=== PATIENT | male | born 1960 | race Caucasian/White ===

== ENCOUNTER 2018-09-06 10:18 | Inpatient (IN) | payer MEDICAID ==
[2018-09-06] MEDS ORDERED: NS 1,000 ML IV ONE (10:21)
[2018-09-06] MEDS ORDERED: diphenhydrAMINE 25 MG CAP PO ONE ×2 (10:21→10:49)
[2018-09-06] MEDS ORDERED: ASPIRIN EC 325 MG TAB PO ONE ×2 (10:21→10:49)
[2018-09-06] MEDS ORDERED: FAMOTIDINE 20 MG TAB PO ONE (10:21)
[2018-09-06] MEDS ORDERED: DIAZEPAM 5 MG TAB PO ONE (10:21)
[2018-09-06] MEDS ORDERED: DIAZEPAM 5 MG TAB ONE (10:50)
[2018-09-06 11:07] LABS: PLATELET COUNT 138 10^3/uL (150-400)
[2018-09-06 11:11] LABS: INR 0.92 (0.83-1.16)
--- NOTE | 2018-09-06 11:34 | PDPROPOC ---
Sedation Plan of Care Sedation Plan of Care: mental status noted, patient educated of risks, benefits , alternatives, patient can tolerate sedation ASA Classification: ASA 2 Planned drugs: fentanyl, midazolam Mallampati Score: Class 2 Mallampati Reference Image: Patient passed 3-3-2 rule?: Yes
--- NOTE | 2018-09-06 11:34 | PDHPUP ---
History & Physical Update H&P update statement: This history and physical update is based on an assessment of the patient which was completed after admission or registration (within 24 hours), but prior to the surgery/procedure. H&P update: H&P reviewed & patient examined, no change in patient's condition since H&P completed
[2018-09-06] MEDS ORDERED: CLOPIDOGREL BISULFATE 75 MG TAB ONE (11:43)
[2018-09-06] MEDS ORDERED: CLOPIDOGREL BISULFATE 75 MG TAB PO ONE (11:45)
[2018-09-06] MEDS ORDERED: LIDOCAINE 1% 300 MG/30 ML SDV ONE (11:49)
[2018-09-06] MEDS ORDERED: fentaNYL 100 MCG/2 ML INJ ONE (11:49)
[2018-09-06] MEDS ORDERED: MIDAZOLAM 2 MG/2 ML VIAL ONE (11:50)
[2018-09-06] MEDS ORDERED: IOPAMIDOL (ISOVUE-370) 150 ML BTL IV ONE (11:50)
[2018-09-06] MEDS ORDERED: NITROGLYCERIN 1,500 MCG/15 ML VIAL MISC ONE (12:23)
[2018-09-06] MEDS ORDERED: NITROGLYCERIN 0.4 MG BTL SL PRN (13:01)
[2018-09-06] MEDS ORDERED: ONDANSETRON 4 MG/2 ML VIAL IVP PRN (13:01)
[2018-09-06] MEDS ORDERED: OXYCODONE/APAP 5/325 TAB PO PRN (13:01)
[2018-09-06] MEDS ORDERED: HYDROCODONE/APAP 5/325 TAB PO PRN (13:01)
[2018-09-06] MEDS ORDERED: ATROPINE SULFATE 1 MG/10 ML SYR IVP PRN (13:01)
--- NOTE | 2018-09-06 14:03 | CPIP ---
[f rep st] INVASIVE CARDIAC PROCEDURE DATE OF PROCEDURE: 09/06/2018 INDICATION FOR PROCEDURE: Chest pain, positive stress test, a history of heart failure. PROCEDURE: 1. Nonselective right groin sheathogram. 2. 7-[place] sheath in the right common femoral vein. 3. Bilateral selective coronary angiography. 4. Left heart catheterization. 5. Left ventriculogram. 6. Right heart catheterization using Me[place]et[place]-Cherie catheter. HISTORY: Briefly this is a 57-year-old male with history of known ischemic cardiomyopathy with histo ry of stent placement in LAD. Patient has been indicating he has been having worsening discomfort in his chest with minimal exertion. Given these findings, patient consented for right and left heart c atheterization. DESCRIPTION OF PROCEDURE: After informed consent, the patient was brought to [facility] where the right arias in was prepped and draped in sterile fashion. Using lidocaine, a short 6-[place] sheath in the right c ommon femoral artery verified angiographically, a 7-[place] sheath in the right common femoral vein. Me[place]et[place]-Cherie catheter was advanced. Wedge pressure mean of 5, A-wave of 6, V-wave of 9. PA pressure sy stolic 31, diastolic 12, mean of 19. RV pressure systolic 30, diastolic 2, end of 9. RA pressure me an of 5, A-wave of 8, V-wave of 6. Cardiac output was 9.2 with a Ann index of 4.1. AO sat was 93%. PA sat was 81%. At this time, the [place]-Cherie catheter was then removed. A JL4 catheter was advanced to the left coronary artery. Images of the left coronary artery revealed normal short left main. The left circumflex had what appeared to be a tubular 40% to 50% disease in the proximal aspect. There was a takeoff of a small marginal 1 artery, and just distal to this, the re was what appeared to be a tight lesion of approximately 70% to 80%, followed by another marginal a rtery, followed by a third marginal artery, which was healthy and free of disease. We decided to adm inister 200 mcg of nitroglycerin as this vessel's tubular stenosis appeared to be quite long and we w anted to make sure this was not a spasm induced issue. 200 mcg of nitroglycerin was administered IC. Images were retaken in the same caudal views. This once again re-demonstrated the lesion between t he 1st marginal and 2nd marginal artery still ranged up to 80%. Of note as well, we have seen at thi s position, there was a stent in the mid LAD, which was patent; however, just proximal to the stent a t the takeoff of a very large septal adjunct trainer, which almost looked like a bifurcating LAD, there ap peared to be a tubular type stenosis of at least 70% to 80%. After these images were obtained, the J L4 catheter was removed. A JR4 catheter was advanced to the right coronary artery. Images of the right coronary artery reveal ed normal ostial RCA, 20% to 30% proximal RCA. The distal RCA going into the RPLS, the RPLS had 70% to 80% hazy disease. The RPLS less appeared to be the larger of the 2 vessels and was widely patent distally. After these images had been obtained, the JR4 catheter was removed. A pigtail catheter was advanced to the left ventricle. EDP is 15 mmHg. Left ventriculogram obtained in the ALONSO projection showed an EF of 50% with low-normal ejection fraction. There was no pullback gradient between the LV and the aorta. The pigtail catheter was removed over 0.035 wire. Right groi n was closed with 6-[place] Angio-Seal and manual pressure. Patient tolerated the procedure well with no complications. IMPRESSION: 1. Triple-vessel coronary artery disease. 2. Normal cardiac output. 3. Normal pulmonic pressures. PLAN: The patient will be seen by Dr. Goodman from CT surgery. Patient is willing to proceed with byp ass surgery if needed. /[id number]/MODL
[2018-09-06] MEDS ORDERED: ACETAMINOPHEN 325 MG TAB PO PRN (14:47)
[2018-09-06] MEDS ORDERED: ONDANSETRON DISINTEGRATING 4 MG TAB PO PRN (14:47)
[2018-09-06] MEDS ORDERED: ALPRAZolam 0.25 MG TAB PO PRN (15:37)
[2018-09-06] MEDS ORDERED: ALBUTEROL 60 PUFFS/8 GM MDI IH PRN (15:37)
--- NOTE | 2018-09-06 16:43 | PDMN ---
Medical Necessity Medical necessity: [facility] Cardiovascular Surgery or Procedure: 57 yo in for scheduled R&L heart cath for CP, +stress test and hx of heart fx. Dx post cath with triple vessel CAD. Pt amenable to CABG - Cardiothoracic surg consulting with pt to discuss bypass. Admit IP status.
--- NOTE | 2018-09-06 16:48 | GCON ---
[f rep st] CONSULTATION DATE OF CONSULTATION: 09/06/2018 The patient is seen at the request of Dr. Crabtree with the patient's permission. IMPRESSION: 1. Crescendo angina with 3-vessel disease and normal LV function, status post remote stenting. 2. Congestive heart failure. MEDICATIONS: As documented. REVIEW OF SYSTEMS: All 10 systems were interrogated and were negative except for chief complaint. PHYSICAL EXAMINATION: GENERAL: This is a well-developed, middle-aged gentleman in no apparent distr ess. HEART: Rate is regular without murmur, S3 or S4. LUNGS: Clear. EXTREMITIES: Pedal pulses a re 2+ and symmetrical. ABDOMEN: Bowel sounds are active. RECTAL/GENITAL: Exam deferred. MEDICATIONS: Aspirin, Ativan, lisinopril, omeprazole and Toprol-XL. SOCIAL HISTORY: He has never smoked. He drinks gxsvpbum-tm-kudzpt alcohol weekly. ALLERGIES: Denied. PHYSICAL EXAMINATION: VITAL SIGNS: 118/82, pulse 74, respirations 14, nonlabored. HEENT: Normocep halic. PERRLA. EOMI. DATA REVIEWED: Cath was reviewed with Dr. Crabtree. /[id number]/MODL
--- NOTE | 2018-09-06 17:30 | CPEKG ---
Test Reason : OPEN Blood Pressure : / mmHG Vent. Rate : 068 BPM Atrial Rate : 070 BPM P-R Int : 182 ms QRS Dur : 083 ms QT Int : 419 ms P-R-T Axes : 025 012 013 degrees QTc Int : 446 ms Sinus rhythm Confirmed by Brody Walton ([id number]) on 09/06/2018 5:30:03 PM Referred By: Cipriano Andrade Confirmed By:Brody Walton
[2018-09-06] MEDS ORDERED: CYCLOBENZAPRINE 10 MG TAB PO SCH (21:00)
[2018-09-07 07:30] VITALS: BP 123/77
--- NOTE | 2018-09-07 07:31 | PDCARPN ---
Cardiology Progress Note Chief Complaint: CP Assessment/Plan: Assessment: CP severe CAD Plan: 09/07/18 07:30 Plan for CABG per CTS will d/c home today if OK with CTS and plan for surgery per CTS Subjective: stable Reviewed/Discussed With: multidisciplinary team Time Spent with Patient: greater than 25 minutes Time Spent with Patient: Greater than 25 minutes spent on this patients care, greater than 50% of time spent counseling, educating, and coordinating care regarding the above mentioned plan. Objective: Vital Signs (8 Hrs) Temp Pulse Resp BP Pulse Ox 09/07/18 07:29 36.9 C 73 20 123/77 H 96 09/07/18 04:00 36.7 C 81 16 103/60 94 09/07/18 02:56 80 20 95 Intake/Output (24 Hrs) 09/06/18 09/07/18 09/08/18 05:59 05:59 05:59 Intake Total 1999 Balance 1999 Intake: Oral (ml) 1600 IV Intake (ml) 400 Other: Weight 96.4 kg 94.438 kg Result Diagrams: 09/06/18 10:55 09/07/18 03:21 - Physical Exam Constitutional: healthy appearing Eyes: PERRL Ears, Nose, Mouth, Throat: moist mucous membranes Cardiovascular: regular rate and rhythm Peripheral Pulses: 1+: femoral (R), femoral (L) Respiratory: clear to auscultate bilat Gastrointestinal: normoactive bowel sounds Genitourinary: no suprapubic tenderness Skin: no rashes Musculoskeletal: no muscular tenderness Neurologic: AAOx3 Psychiatric: cooperative ICD10 Worksheet Patient Problems: Problems Problem Status Onset CAD (coronary artery disease) Acute - ICD10 Problem Qualifiers (1) CAD (coronary artery disease) Qualifiers: Coronary Disease-Associated Artery/Lesion type: [place] artery [place] vs. transplanted heart: [place] heart Associated angina: with stable angina Qualified Code(s): I25.118 - Atherosclerotic heart disease of [place] coronary artery with other forms of angina pectoris
--- NOTE | 2018-09-07 07:50 | GDS ---
[f rep st] DISCHARGE SUMMARY DISCHARGE DIAGNOSIS: Coronary artery disease. Briefly, this is a 57-year-old male with history of coronary artery disease, ischemic cardiomyopathy, who underwent elective cardiac catheterization on 09/06/2018. The patient was found to have triple- vessel coronary artery disease. The patient was seen by Dr. Goodman from CT surgery. The patient will discuss with Dr. Goodman as well as the CT surgical staff about timing of his CABG. The patient is cu rrently resting quietly with no active discomfort. Blood pressure, heart rate are currently stable. He will be discharged home with his home medications and he will follow up with Dr. Goodman at timing of surgery. Currently, the patient is stable and will follow through with surgical plans as schedule d. /[id number]/MODL
[2018-09-07] MEDS ORDERED: METOPROLOL SUCCINATE XR 50 MG TAB PO SCH (09:00)
[2018-09-07] MEDS ORDERED: PANTOPRAZOLE SODIUM 40 MG TAB PO SCH (09:00)
[2018-09-07] MEDS ORDERED: Herbals/Supplements -Info Only PO SCH (09:00)
[2018-09-07] MEDS ORDERED: LISINOPRIL 20 MG TAB PO SCH (09:00)
[2018-09-07] MEDS ORDERED: ALLOPURINOL 300 MG TAB PO SCH (09:00)
[2018-09-07] MEDS ORDERED: ASPIRIN 81 MG CHEWABLE TAB PO SCH (09:00)
== END 2018-09-07 10:45 | disposition home or self-care (01) | DRG 191 ==
LOC: FCATH 10:18 → F2W 14:52 → OBSVTOIN 14:52 → F2W 16:13
PROVIDERS: ADMIT Internal Medicine Cardiovascular Disease; ATTEND Internal Medicine Interventional Cardiology
PROC: 4A023N8 Measurement of Cardiac Sampling and Pressure, Bilateral, Percutaneous Approach (ICD-10-PCS; principal; 2018-09-06)
PROC: B2151ZZ Fluoroscopy of Left Heart using Low Osmolar Contrast (ICD-10-PCS; principal; 2018-09-06)
PROC: B2111ZZ Fluoroscopy of Multiple Coronary Arteries using Low Osmolar Contrast (ICD-10-PCS; principal; 2018-09-06)
DX: I25.110 Atherosclerotic heart disease of native coronary artery with unstable angina pectoris (principal); I11.0 Hypertensive heart disease with heart failure; I50.42 Chronic combined systolic (congestive) and diastolic (congestive) heart failure; I25.5 Ischemic cardiomyopathy; M10.9 Gout, unspecified; Z85.6 Personal history of leukemia
CPT/HCPCS: C1760; J1644; J2250; J3010; Q9967

== ENCOUNTER 2018-09-13 07:40 | Inpatient (IN) | payer MEDICAID ==
[~2018-09-13 07:40] MED LIST: ADENOSINE 6 MG/2 ML VIAL ONE; ALBUMIN 5% 250 ML BOTTLE IV ONE; AMINOCAPROIC ACID 5 GM/20 ML VIAL IV ONE; AMINOCAPROIC ACID 5 GM/20 ML VIAL ONE; AMIODARONE HCL 150 MG/3 ML VIAL ONE; CALCIUM CHLORIDE 1 GM/10 ML INJ ONE; CITRATE DEXTROSE SOLN 500 ML BAG MISC ONE; CITRATE DEXTROSE SOLN 500 ML BAG ONE; DOPamine/DEXTROSE 400 MG/250 ML BAG IV ONE; HEPARIN 10,000 UNIT/10 ML MDV (1,000 UNIT/ML) ONE; LIDOCAINE 2% 100 MG/5 ML SYR ONE; LR 1,000 ML IV ONE; MAGNESIUM SULFATE 1 GM/2 ML VIAL ONE; MILRINONE/DEXTROSE/100 ML BAG IV ONE; MINERAL OIL 10 ML VIAL ONE; MUPIROCIN 2% 22 GM OINT NS ONE; NA BICARBONATE 50 MEQ/50 ML VIAL ONE; NITROGLYCERIN/D5W 50 MG/250 ML BOTTLE IV ONE; PAPAVERINE HCL 60 MG/2 ML SDV ONE; PROTAMINE SULFATE 50 MG/5 ML VIAL IVP ONE; SODIUM BICARBONATE 50 MEQ/50 ML SYR ONE; VERAPAMIL 5 MG/2 ML VIAL ONE; ceFAZolin 1 GM VIAL ONE; ceFAZolin 2 GM/DEXTROSE 100 ML IV ONE; methylPREDNISolone SOD SUCC 1 GM/8 ML VIAL ONE; niCARdipine/NACL 200 ML IV ONE; niCARdipine/NACL/200 ML BAG IV ONE
[2018-09-13] MEDS ORDERED: NOREPINEPHRINE BITARTRATE 16 MG in NS 250 ML IV ONE (08:00)
[2018-09-13] MEDS ORDERED: PHENYLEPHRINE HCL 50 MG in NS 250 ML IV ONE (08:00)
[2018-09-13] MEDS ORDERED: VERAPAMIL 5 MG, NITROGLYCERIN 2.5 MG, HEPARIN 500 UNIT, SODIUM BICARBONATE 0.2 MEQ in L... MISC ONE (08:00)
[2018-09-13] MEDS ORDERED: MANNITOL 25% 12.5 GM/50 ML VIAL IVP ONE (08:00)
[2018-09-13] MEDS ORDERED: CARDIOPLEGIC SOLUTION 1,052.8 ML PF ONE (08:00)
[2018-09-13] MEDS ORDERED: INSULIN REGULAR HUMAN 100 UNIT in NS 100 ML IV ONE (08:00)
[2018-09-13] MEDS ORDERED: MIDAZOLAM 2 MG/2 ML VIAL IVP ONE (09:14)
--- NOTE | 2018-09-13 09:15 | PDANEPAE ---
ANE History of Present Illness here for 3 V CABG ANE Past Medical History - Cardiovascular History Hx Hypertension: Yes Hx Arrhythmias: No Hx Chest Pain: No Hx Coronary Artery / Peripheral Vascular Disease: Yes Hx CHF / Valvular Disease: Yes Hx Palpitations: No Cardiovascular History Comment: htn. CAD with stent placed 1999 in [place]. CHF. followed by [facility]. heart cath 09/06/18 - Pulmonary History Hx COPD: Yes Hx Asthma/Reactive Airway Disease: No Hx Recent Upper Respiratory Infection: No Hx Oxygen in Use at Home: No Hx Sleep Apnea: Yes Sleep Apnea Screening Result - Last Documented: Positive Pulmonary History Comment: benjamin positive. SOB - Neurologic History Hx Cerebrovascular Accident: No Hx Seizures: No Hx Dementia: No - Endocrine History Hx Diabetes: No - Renal History Hx Renal Disorders: No - Liver History Hx Hepatic Disorders: No - Neurological & Psychiatric Hx Hx Neurological and Psychiatric Disorders: Yes Neurological / Psychiatric History Comment: anxiety - Cancer History Cancer History Comment: CLL currently in remission x4 yrs did do chemo and radiation - Congenital Disorder History Hx Congenital Disorders: No - GI History Hx Gastrointestinal Disorders: Yes Gastrointestinal History Comment: GERD - Other Health History Other Health History: gout. recent dental infection treated with abx and teeth removed - Chronic Pain History Chronic Pain: No - Surgical History Prior Surgeries: heart cath 09/06/18. cardiac stent placed in 1999 in [place]. right shoulder replacement ANE Review of Systems Review of systems is: negative Review of Systems: - Exercise capacity Exercise capacity: <4 METS METS (RN): 3 METS ANE Patient History - Allergies Allergies/Adverse Reactions: No Known Allergies Allergy (Verified 09/09/18 10:51) - Home Medications Home medications: home medication list seen and reviewed Home Medications: ALPRAZolam [Xanax 0.5 MG (*)] 0.5 mg PO DAILY PRN 10/22/15 [Last Taken 07/23/18] Albuterol Hfa Anes Only [Proair Hfa Icu (*)] 1 - 2 puffs IH Q4 PRN 10/22/15 [ Last Taken 08/16/18] Allopurinol [Allopurinol 300 MG (RX)] 300 mg PO DAILY 10/22/15 [Last Taken 09/12] Lisinopril [Zestril 20 mg (*)] 20 mg PO DAILY 10/22/15 [Last Taken 09/12/18] Cyclobenzaprine [Flexeril 10 MG (*)] 10 mg PO HS 09/06/18 [Last Taken 09/12/18] Herbals/Supplements -Info Only 1 ea PO DAILY 09/06/18 [Last Taken 09/12/18] Metoprolol Succinate Xr [Toprol Xl 50 mg (*)] 50 mg PO DAILY 09/06/18 [Last Taken 09/12/18] Pantoprazole Sodium [Protonix 40mg (*)] 40 mg PO DAILY 09/06/18 [Last Taken ] - NPO status NPO Status: no food or drink >8 hours NPO Since - Liquids (Date): 09/12/18 NPO Since - Solids (Date): 09/12/18 - Smoking Hx Smoking Status: Never smoked ANE Labs/Vital Signs - Vital Signs Vital Signs: reviewed preoperatively; see RN documention for details Blood Pressure: 129/79 Heart Rate: 72 Respiratory Rate: 14 O2 Sat (%): 97 Height: 187.9 cm Weight: 94.438 kg ANE Physical Exam - Airway Neck exam: FROM Mallampati Score: Class 1 - Pulmonary Pulmonary: no respiratory distress - Cardiovascular Cardiovascular: regular rate and rhythym - ASA Status ASA Status: III ANE Anesthesia Plan Anesthesia Plan: general endotracheal anesthesia Lines/Monitors: arterial line, central line
[2018-09-13] MEDS ORDERED: fentaNYL 250 MCG/5 ML INJ ONE ×2 (09:20)
[2018-09-13] MEDS ORDERED: PROPOFOL/EMULSION 500 MG/50 ML BOTTLE IV ONE (09:21)
[2018-09-13] MEDS ORDERED: PHENYLEPHRINE HCL 100 MCG/ML SYR ONE (09:26)
[2018-09-13] MEDS ORDERED: KETAMINE 200 MG/20 ML VIAL ONE (10:10)
[2018-09-13] MEDS ORDERED: DEXAMETHASONE 4 MG/ML VIAL ONE (10:11)
[2018-09-13] MEDS ORDERED: MIDAZOLAM 2 MG/2 ML VIAL ONE (11:18)
[2018-09-13] MEDS ORDERED: ROCURONIUM 50 MG/5 ML VIAL ONE (11:19)
[2018-09-13] MEDS ORDERED: ceFAZolin 1 GM VIAL ONE ×2 (11:42)
[2018-09-13] MEDS ORDERED: DEXMEDETOMIDINE HCL 400 MCG in NS 100 ML IV SCH (13:00)
[2018-09-13] MEDS ORDERED: SUGAMMADEX SODIUM 200 MG/2 ML VIAL IVP ONE (13:13)
[2018-09-13] MEDS ORDERED: LACTULOSE 20 GM/30 ML UDCUP PO PRN (13:31)
[2018-09-13] MEDS ORDERED: ACETAMINOPHEN 650 MG SUPP PR PRN (13:31)
[2018-09-13] MEDS ORDERED: POTASSIUM Cl (KCl) 50 ML IV PRN (13:31)
[2018-09-13] MEDS ORDERED: ONDANSETRON DISINTEGRATING 4 MG TAB PO PRN (13:31)
[2018-09-13] MEDS ORDERED: POLYETHYLENE GLYCOL 3350 17 GM PKT PO PRN (13:31)
[2018-09-13] MEDS ORDERED: MEPERIDINE 25 MG/0.5 ML AMP IVP PRN (13:31)
[2018-09-13] MEDS ORDERED: SODIUM CL NASAL 45 ML BTL EACHNARE PRN (13:31)
[2018-09-13] MEDS ORDERED: BISACODYL 10 MG SUPP PR PRN (13:31)
[2018-09-13] MEDS ORDERED: D50W 25 GM/50 ML SYR IVP PRN (13:31)
[2018-09-13] MEDS ORDERED: PANTOPRAZOLE SODIUM 40 MG VIAL IVP ONE (13:31)
[2018-09-13] MEDS ORDERED: CEPACOL LOZENGE PO PRN (13:31)
[2018-09-13] MEDS ORDERED: MAGNESIUM HYDROXIDE 30 ML UDCUP PO PRN (13:31)
--- NOTE | 2018-09-13 13:43 | PDMN ---
Medical Necessity Medical necessity: [facility] IP only surgery; cpt 12041 CABG
[2018-09-13] MEDS ORDERED: NS 1,000 ML IV SCH (13:45)
[2018-09-13] MEDS ORDERED: INSULIN REGULAR HUMAN 100 UNIT in NS 100 ML IV SCH (14:00)
[2018-09-13] MEDS: fentaNYL 100 MCG/2 ML INJ IVP PRN ×3 (14:00→18:55)
[2018-09-13] MEDS ORDERED: niCARdipine/NACL 200 ML IV SCH (14:00)
[2018-09-13] MEDS ORDERED: NA BICARBONATE 50 MEQ/50 ML VIAL ONE (14:22)
[2018-09-13] MEDS ORDERED: NA BICARBONATE 50 MEQ/50 ML VIAL IV ONE ×2 (14:30→16:00)
--- NOTE | 2018-09-13 14:49 | GCON ---
[f rep st] CONSULTATION DRAGLINE ENGINEER CONSULTATION HISTORY OF PRESENT ILLNESS: Patient examined postoperatively after receiving coronary bypass graft. The patient is a 57-year-old white male with an extensive past medical history, including gout, cassandra roesophageal reflux disease, chronic lymphoid leukemia, congestive heart failure, anxiety. He is, ag ain, examined postoperatively. Currently, he is sedated and on mechanical ventilation. All history is gleaned from the medical record. REVIEW OF SYSTEMS: Ten-point review of systems was attempted, but unable to be performed, secondary to sedation and mechanical ventilation. PAST MEDICAL HISTORY: Significant for anxiety, coronary artery disease, congestive heart failure, CL L, gastroesophageal reflux disease, and gout. PAST SURGICAL HISTORY: Arthroplasty of shoulder and coronary artery stent. ALLERGIES: No known medications. SOCIAL HISTORY: Fgfwlyuz-ya-omayjf alcohol use. No history of tobacco use. PHYSICAL EXAM: VITAL SIGNS: Blood pressure 129/79, pulse 72, respirations 14. He is afebrile. Oxy gen saturation 97% on mechanical ventilation. GENERAL: He is a well-developed 57-year-old white mal e who is sedated and on mechanical ventilation. HEENT: Eyes: FERMÍN, EOMI. Throat: Endotracheal tu be is in good position. NECK: Supple. No cervical adenopathy. HEART: Regular rate and rhythm wit h a 2/6 systolic murmur at left sternal border without radiation. LUNGS: Diminished breath sounds w ith a mild prolongation expiratory phase, but there is no wheeze. ABDOMEN: Soft, nontender. Bowel sounds are present in all 4 quadrants . EXTREMITIES: No clubbing, cyanosis, or edema. LABORATORY DATA: Hemoglobin 11, hematocrit 34. Sodium 140, potassium 4.4, chloride 110, CO2 21, BUN is 6, creatinine 0.9, glucose is 181. Arterial blood gas: pH 7.29, pCO2 of 41, pO2 of 278, bicarb 20, oxygen saturation 100%. IMPRESSION: 1. Coronary artery disease, status post coronary bypass graft. 2. Hypertension. 3. Chronic lymphocytic leukemia. 4. History of excessive alcohol use. 5. Congestive heart failure. 6. Gastroesophageal reflux disease. 7. Possible obstructive sleep apnea. RECOMMENDATIONS: 1. Wean patient from mechanical ventilation as tolerated. 2. DVT and PE prophylaxis, holding anticoagulation for now. 3. Stress ulcer prophylaxis. 4. Aggressive blood sugar control. 5. Early ambulation. 6. PT and OT. /[id number]/MODL
--- NOTE | 2018-09-13 14:54 | GOP ---
[f rep st] OPERATIVE REPORT DATE OF OPERATION: 09/13/2018 SURGEON: Cipriano Goodman DO LANDING SCALER: 1. Torrey Mcconnell PA-C. 2. Marisa. ANESTHESIOLOGIST: [place]. PREOPERATIVE DIAGNOSIS: Arteriosclerotic heart disease. POSTOPERATIVE DIAGNOSIS: Arteriosclerotic heart disease. PROCEDURE PERFORMED: 1. Coronary artery bypass grafting x4 with left internal mammary artery to the left anterior descend ing, saphenous vein graft to the first obtuse marginal, third obtuse marginal and posterolateral bran ch of the right. 2. Endoscopic vein of both thighs by NELLY Yepez, who first-assisted throughout the procedure. 3. Suture ligation of the left atrial appendage. FINDINGS: DESCRIPTION OF PROCEDURE: The patient was consented for surgery, brought to the operating room, intu bated and monitoring lines were placed. He was prepped and draped in sterile classical manner. Ster notomy was performed. Mammary was harvested, as was the vein endoscopically from both thighs. It wa s good quality vein, as was the mammary. He was heparinized, cannulated. Bypass was begun. A cardi oplegic arrest was obtained with antegrade cardioplegia, topical hypothermia and systemic cooling. A ll distal and proximal was performed with a cross-clamp on. The posterolateral branch was a 2.4 mm v essel. The 1st and 3rd circumflex branches were 2.2 and the LAD was 2.6. The Conduits were excellen t. The aorta was without thickening or calcification. We then over-sewed the left atrial appendage was 3 Endoloops. Cross-clamp was then removed with suction on the ascending aortic vent. Spontaneou s cardiac activity was noted to resume. The patient was then weaned from bypass. Heparin was revers ed with protamine. Cannula was removed and oversewn. One left pleural and 1 mediastinal drain were placed. Thymic fat and pericardium were closed. Chest was closed in standard fashion. The patient was returned to ICU in stable condition. /[id number]/MODL
[2018-09-13] MEDS: ALBUMIN 5% 250 ML IV PRN ×2 (15:13→15:29)
--- NOTE | 2018-09-13 15:29 | ASMTCMCOM ---
CM Note CM Note Notes: Pt is a 57 yo M presents after undergoing coronary bypass graft. Pt came to ICU intubated. Pt has past history of gout, reflux, lymphoid leukemia, congestive heart failure, and anxiety. At this time PT/OT are ordered. Transitional Care is ordered. CM to follow. Plan: TBD Date Signed: 09/13/2018 03:28 PM Electronically Signed By:MARIBELL Sheehan
[2018-09-13] MEDS: ONDANSETRON 4 MG/2 ML VIAL IVP PRN (16:15)
[2018-09-13] MEDS ORDERED: DOPamine/DEXTROSE 400 MG/250 ML BAG IV ONE (16:16)
--- NOTE | 2018-09-13 16:28 | CPEKG ---
Test Reason : OPEN Blood Pressure : / mmHG Vent. Rate : 081 BPM Atrial Rate : 082 BPM P-R Int : 227 ms QRS Dur : 086 ms QT Int : 410 ms P-R-T Axes : 000 056 046 degrees QTc Int : 476 ms Sinus rhythm Prolonged [place] interval Anteroseptal infarct, age indeterminate Compared with 09/06/2018 first degree AV block now present. Change in R wave progression Confirmed by Libia Oliveira ([id number]) on 09/13/2018 4:27:40 PM Referred By: Cipriano Goodman Confirmed By:Libia Oliveira
[2018-09-13] MEDS ORDERED: DEXTROSE IV SCH (16:30)
[2018-09-13] MEDS ORDERED: DOPAMINE IV SCH (16:30)
[2018-09-13] MEDS ORDERED: ALBUMIN 5% 500 ML BOTTLE IV ONE ×2 (16:32→23:19)
[2018-09-13] MEDS ORDERED: ALBUMIN 5% 250 ML IV ONE (17:00)
[2018-09-13] MEDS: ceFAZolin 2 GM/DEXTROSE 100 ML IV SCH (17:03)
--- NOTE | 2018-09-13 17:18 | POSTANESTH ---
Post Anesthetic Evaluation Cardiovascular Status: Normal, Stable Respiratory Status: Normal, Stable Level of Consciousness/Mental Status: Moderately Sleepy Pain Control: Adequate, Prn Tx Ordered Nausea/Vomiting Control: Adequate, Prn Tx Ordered Complications Possibly Related to Anesthesia: None Noted
[2018-09-13] MEDS: HYDROCODONE/APAP 5/325 TAB PO PRN ×2 (19:39→23:22)
[2018-09-13] MEDS: FAMOTIDINE 20 MG/NACL 50 ML IV SCH (20:02)
[2018-09-13] MEDS: SENNOSIDES/DOCUSATE SODIUM TAB PO SCH (20:02)
[2018-09-13] MEDS: CHLORHEXIDINE GLUCONATE 15 ML UDL PO SCH (20:05)
[2018-09-13] MEDS: MUPIROCIN 2% 22 GM OINT NS SCH (20:20)
[2018-09-13] MEDS ORDERED: ALBUMIN 5% 250 ML BOTTLE IV ONE (21:09)
[2018-09-13] MEDS ORDERED: ALBUMIN 5% 500 ML IV ONE (23:30)
[2018-09-14] MEDS: fentaNYL 100 MCG/2 ML INJ IVP PRN ×2 (01:12→06:13)
[2018-09-14] MEDS: ceFAZolin 2 GM/DEXTROSE 100 ML IV SCH ×3 (01:15→17:13)
[2018-09-14] MEDS: HYDROCODONE/APAP 5/325 TAB PO PRN ×2 (03:51→08:00)
[2018-09-14 04:05] LABS: PLATELET COUNT 86 10^3/uL (150-400)
[2018-09-14] MEDS: HEPARIN 5,000 UNIT/0.5 ML INJ SC SCH ×3 (04:29→23:16)
[2018-09-14] MEDS: CHLORHEXIDINE GLUCONATE 15 ML UDL PO SCH (08:01)
[2018-09-14] MEDS: ASPIRIN 81 MG CHEWABLE TAB PO SCH (08:01)
[2018-09-14] MEDS: MUPIROCIN 2% 22 GM OINT NS SCH ×2 (08:01→21:00)
[2018-09-14] MEDS: SENNOSIDES/DOCUSATE SODIUM TAB PO SCH ×2 (08:01→21:12)
[2018-09-14] MEDS: PANTOPRAZOLE SODIUM 40 MG TAB PO SCH (08:01)
[2018-09-14] MEDS: FAMOTIDINE 20 MG/NACL 50 ML IV SCH (08:04)
--- NOTE | 2018-09-14 08:31 | SOAPPROG ---
SOAP Progress Note Assessment/Plan: POD #1: CABGx4 (QUIROGA-LAD, SVG-OM1, SVG-OM3, SVG-RPL), suture ligation ESTEFANI, EVH BL thighs CAD s/p CABGx4 - CTs to bulb, AL/FC out - BB/ASA/sratin for secondary prevention when appropriate Acute post-op blood loss anemia - No transfusions needed DVT prophylaxis - SCDs/heparin SQ Disposition - PCU Subjective: pt c/o incisional pain Objective: Vital Signs Temp Pulse Resp BP Pulse Ox 37.4 C 102 H 24 H 141/69 H 96 09/14/18 06:00 09/14/18 07:00 09/14/18 07:00 09/14/18 07:00 09/14/18 07:00 Laboratory Results 09/14/18 03:56 09/14/18 03:56 09/13/18 09/14/18 09/15/18 05:59 05:59 05:59 Intake Total 3539 Output Total 2675 Balance 864 Physical Exam - Physical Exam General Appearance: WD/WN, alert, no apparent distress EENT: No scleral icterus (R), No scleral icterus (L) Neck: normal inspection Respiratory: No respiratory distress Cardiac/Chest: regular rate, rhythm Abdomen: non-tender, soft, No distended Skin: normal color, warm/dry Extremities: No pedal edema Neuro/Psych: no motor/sensory deficits, alert, normal mood/affect, oriented x 3 ICD10 Worksheet Patient Problems: Problems Problem Status Onset Acute blood loss as cause of postoperative anemia Acute S/P CABG x 4 Acute Status post ligation of left atrial appendage Acute CAD (coronary artery disease) Acute
[2018-09-14] MEDS ORDERED: ALBUTEROL HFA ANES ONLY 200 PUFFS/8.5 GM MDI IH PRN (08:35)
[2018-09-14] MEDS ORDERED: ALBUTEROL 60 PUFFS/8 GM MDI IH PRN (08:42)
[2018-09-14] MEDS ORDERED: OXYCODONE/APAP 5/325 TAB PO PRN (09:24)
[2018-09-14] MEDS: ALLOPURINOL 300 MG TAB PO SCH (10:31)
[2018-09-14] MEDS: traMADol 50 MG TAB PO PRN ×3 (10:34→18:53)
[2018-09-14] MEDS: oxyCODONE IR 5 MG TAB PO PRN ×2 (16:10→20:17)
[2018-09-14] MEDS ORDERED: AMIODARONE LOAD DOSE(ORDER 1/3) PREMIX IV ONE (21:00)
[2018-09-14] MEDS ORDERED: AMIODARONE 6HR INFSN (ORDER 2/3) PREMIX IV ONE (21:00)
[2018-09-14] MEDS: METOPROLOL TARTRATE 25 MG TAB PO SCH (21:12)
[2018-09-14] MEDS: CYCLOBENZAPRINE 10 MG TAB PO SCH (21:12)
[2018-09-15] MEDS: ceFAZolin 2 GM/DEXTROSE 100 ML IV SCH (00:58)
[2018-09-15] MEDS ORDERED: AMIODARONE 18HR INFSN (ORDER 3/3) IV ONE (03:00)
[2018-09-15] MEDS: oxyCODONE IR 5 MG TAB PO PRN (03:11)
[2018-09-15 05:38] LABS: PLATELET COUNT 133 10^3/uL (150-400)
[2018-09-15] MEDS: ONDANSETRON 4 MG/2 ML VIAL IVP PRN ×2 (06:30→12:48)
--- NOTE | 2018-09-15 07:43 | SOAPPROG ---
SOAP Progress Note Assessment/Plan: POD #2: CABGx4 (QUIROGA-LAD, SVG-OM1, SVG-OM3, SVG-RPL), suture ligation ESTEFANI, EVH BL thighs CAD s/p CABGx4 - CTs to be removed, AL/FC out - BB/ASA/statin for secondary prevention when appropriate Acute post-op blood loss anemia - No transfusions needed Post-op atrial fibrillation - Quick conversion to SR with amiodarone - Continue BB - [id number] 2 - will consider AC if arrhythmia reccurent DVT prophylaxis - SCDs/heparin SQ Disposition - PCU Subjective: difficult to take deep breaths, pain on inspiration Objective: Vital Signs Temp Pulse Resp BP Pulse Ox 36.8 C 100 18 112/70 93 09/14/18 20:00 09/15/18 04:00 09/15/18 04:00 09/15/18 04:00 09/15/18 04:00 Laboratory Results 09/15/18 05:00 09/15/18 05:00 09/14/18 09/15/18 09/16/18 05:59 05:59 05:59 Intake Total 3539 3256 Output Total 2675 1660 Balance 864 1596 Physical Exam - Physical Exam General Appearance: WD/WN, alert, mild distress EENT: No scleral icterus (R), No scleral icterus (L) Neck: normal inspection Respiratory: splinting, pain on movement, other (CXR OK) Cardiac/Chest: regular rate, rhythm Abdomen: non-tender, soft, No distended Skin: normal color, warm/dry Extremities: No pedal edema Neuro/Psych: no motor/sensory deficits, alert, normal mood/affect, oriented x 3 ICD10 Worksheet Patient Problems: Problems Problem Status Onset Acute blood loss as cause of postoperative anemia Acute S/P CABG x 4 Acute Status post ligation of left atrial appendage Acute CAD (coronary artery disease) Acute
[2018-09-15] MEDS ORDERED: AMIODARONE HCL 100 ML IV ONE (07:55)
[2018-09-15] MEDS: ASPIRIN 81 MG CHEWABLE TAB PO SCH (08:47)
[2018-09-15] MEDS: ALLOPURINOL 300 MG TAB PO SCH (08:48)
[2018-09-15] MEDS: PANTOPRAZOLE SODIUM 40 MG TAB PO SCH (08:48)
[2018-09-15] MEDS: METOPROLOL TARTRATE 25 MG TAB PO SCH ×2 (08:50→20:13)
[2018-09-15] MEDS: SENNOSIDES/DOCUSATE SODIUM TAB PO SCH ×2 (08:50→20:13)
[2018-09-15] MEDS: MUPIROCIN 2% 22 GM OINT NS SCH (09:00)
[2018-09-15] MEDS: HEPARIN 5,000 UNIT/0.5 ML INJ SC SCH ×3 (09:00→21:38)
[2018-09-15] MEDS ORDERED: KETOROLAC 30 MG/1 ML SDV ONE (09:24)
[2018-09-15] MEDS ORDERED: KETOROLAC 30 MG/1 ML SDV IVP ONE (09:24)
[2018-09-15] MEDS ORDERED: HYDROmorphONE/DILAUDID 2 MG TAB PO PRN (09:54)
[2018-09-15] MEDS ORDERED: ALPRAZolam 0.5 MG TAB PO PRN (09:57)
[2018-09-15] MEDS: traMADol 50 MG TAB PO PRN ×2 (12:32→20:16)
[2018-09-15] MEDS: METOCLOPRAMIDE 10 MG/2 ML VIAL IVP PRN ×2 (14:27→21:39)
--- NOTE | 2018-09-15 15:00 | ASMTCMCOM ---
CM Note CM Note Notes: 09/15/2018 Case Management Note Discussed with this morning. POD #2 CABG x 4. PT eval recommending outpatient cardiac rehab. No further case management d/c needs anticipated. Pt to transfer to 2W PCU. Case Management d/c poc: Cardiac outpatient rehab. Case Management available if needs change. Date Signed: 09/15/2018 03:00 PM Electronically Signed By:Pita Mustafa RN
[2018-09-15] MEDS: AMIODARONE HCL 200 MG TAB PO SCH (20:12)
[2018-09-15] MEDS: CYCLOBENZAPRINE 10 MG TAB PO SCH (20:12)
[2018-09-16] MEDS: traMADol 50 MG TAB PO PRN ×2 (03:42→14:30)
[2018-09-16] MEDS: HEPARIN 5,000 UNIT/0.5 ML INJ SC SCH (05:29)
[2018-09-16] MEDS: METOCLOPRAMIDE 10 MG/2 ML VIAL IVP PRN (05:59)
--- NOTE | 2018-09-16 08:15 | SOAPPROG ---
SOAP Progress Note Assessment/Plan: POD #3: CABGx4 (QUIROGA-LAD, SVG-OM1, SVG-OM3, SVG-RPL), suture ligation ESTEFANI, EVH BL thighs CAD s/p CABGx4 - BB/ASA for secondary prevention - Statin therapy held d/t nausea, although suspect amiodarone as culprit - Yesterday's CXR congested, net positive, up 4 kg - give IV lasix x1 Post-op nausea -amiodarone tolerated at this time - 2 doses of zofran; caution w QT prolongation (QTc 476) - PRN reglan Acute post-op blood loss anemia - No transfusions needed Post-op atrial fibrillation, on amio protocol - Another episode last night - Increase BB - [id number] 2 - will consider AC if arrhythmia recurrent DVT prophylaxis - SCDs/heparin SQ PTOT -home w outpt rehab Disposition -expect discharge Thursday/Thursday09/16/18 09:04 Subjective: Nausea w activity. Objective: Vital Signs Temp Pulse Resp BP Pulse Ox 36.6 C 93 20 129/80 H 93 09/16/18 04:00 09/16/18 04:00 09/16/18 04:00 09/16/18 04:00 09/16/18 04:00 Laboratory Results 09/15/18 05:00 09/15/18 05:00 09/15/18 09/16/18 09/17/18 05:59 05:59 05:59 Intake Total 3256 1334.7 Output Total 1660 915 Balance 1596 419.7 - Physical Exam General Appearance: WD/WN, alert, mild distress EENT: No scleral icterus (R), No scleral icterus (L) Neck: normal inspection Respiratory: splinting, pain on movement, other (CXR congested 09/15) Cardiac/Chest: regular rate, rhythm 80's (tele overnight afib) Abdomen: non-tender, soft, No distended Skin: normal color, warm/dry Extremities: trace pedal edema Neuro/Psych: no motor/sensory deficits, alert, normal mood/affect, oriented x 3 ICD10 Worksheet Patient Problems: Problems Problem Status Onset Acute blood loss as cause of postoperative anemia Acute S/P CABG x 4 Acute Status post ligation of left atrial appendage Acute CAD (coronary artery disease) Acute
[2018-09-16] MEDS ORDERED: FUROSEMIDE 20 MG/2 ML VIAL IVP ONE (08:19)
[2018-09-16] MEDS ORDERED: ONDANSETRON 4 MG/2 ML VIAL IVP SCH (08:53)
[2018-09-16] MEDS: SENNOSIDES/DOCUSATE SODIUM TAB PO SCH ×2 (09:09→21:37)
[2018-09-16] MEDS: METOPROLOL TARTRATE 25 MG TAB PO SCH ×2 (09:10→21:38)
[2018-09-16] MEDS: ASPIRIN 81 MG CHEWABLE TAB PO SCH (09:11)
[2018-09-16] MEDS: AMIODARONE HCL 200 MG TAB PO SCH (09:11)
[2018-09-16] MEDS: PANTOPRAZOLE SODIUM 40 MG TAB PO SCH (09:11)
[2018-09-16] MEDS: ALLOPURINOL 300 MG TAB PO SCH (09:11)
[2018-09-16] MEDS: APIXABAN 5 MG TAB PO SCH (21:37)
[2018-09-16] MEDS: CYCLOBENZAPRINE 10 MG TAB PO SCH (21:37)
[2018-09-17] MEDS: traMADol 50 MG TAB PO PRN ×3 (04:57→13:17)
[2018-09-17] MEDS: ACETAMINOPHEN 325 MG TAB PO PRN ×2 (07:03→11:33)
--- NOTE | 2018-09-17 07:32 | SOAPPROG ---
SOAP Progress Note Assessment/Plan: POD #4: CABGx4 (QUIROGA-LAD, SVG-OM1, SVG-OM3, SVG-RPL), suture ligation ESTEFANI, EVH BL thighs CAD s/p CABGx4 - BB/ASA for secondary prevention - Statin therapy held d/t nausea, revisit as outpt w cardiology Acute post-op blood loss anemia - No transfusions needed Post-op atrial fibrillation - BB at BP threshold - poorly tolerated Amio (nausea) w improvement after cessation - [id number] 2 - placed on Eliquis DVT prophylaxis - SCDs/heparin SQ PTOT -home w outpt rehab Disposition -expect Thursday -supplement K -start daily PO lasix -recheck K at noon Subjective: Nausea improved, pain persists. Objective: Vital Signs Temp Pulse Resp BP Pulse Ox 36.9 C 89 18 106/52 L 90 L 09/17/18 07:15 09/17/18 07:15 09/17/18 07:15 09/17/18 07:15 09/17/18 07:15 Laboratory Results 09/15/18 05:00 09/17/18 05:10 09/16/18 09/17/18 09/18/18 05:59 05:59 05:59 Intake Total 1334.7 1195 Output Total 915 1525 Balance 419.7 -330 - Physical Exam General Appearance: WD/WN, alert, mild distress EENT: No scleral icterus (R), No scleral icterus (L) Neck: normal inspection Respiratory: splinting, pain on movement, other (CXR congested 09/15) Cardiac/Chest: regular rate, rhythm 80's Abdomen: non-tender, soft, No distended Skin: normal color, warm/dry Extremities: trace pedal edema Neuro/Psych: no motor/sensory deficits, alert, normal mood/affect, oriented x 3 ICD10 Worksheet Patient Problems: Problems Problem Status Onset Acute blood loss as cause of postoperative anemia Acute S/P CABG x 4 Acute Status post ligation of left atrial appendage Acute CAD (coronary artery disease) Acute
[2018-09-17] MEDS ORDERED: POTASSIUM CL 20 MEQ TAB PO ONE ×2 (07:35→12:31)
[2018-09-17] MEDS ORDERED: SENNOSIDES/DOCUSATE SODIUM TAB PO PRN (09:00)
[2018-09-17] MEDS: FUROSEMIDE 20 MG TAB PO SCH (09:03)
[2018-09-17] MEDS: ALLOPURINOL 300 MG TAB PO SCH (09:03)
[2018-09-17] MEDS: PANTOPRAZOLE SODIUM 40 MG TAB PO SCH (09:04)
[2018-09-17] MEDS: ASPIRIN 81 MG CHEWABLE TAB PO SCH (09:04)
[2018-09-17] MEDS: METOPROLOL TARTRATE 25 MG TAB PO SCH ×2 (09:04→21:22)
[2018-09-17] MEDS: APIXABAN 5 MG TAB PO SCH ×2 (09:04→21:22)
--- NOTE | 2018-09-17 16:22 | ASMTCMCOM ---
CM Note CM Note Notes: 09/17/2018 Case Management Note Discussed during rounds. PT recommending outpatient cardiac rehab. Anticipating d/c Thursday. There are no further Case Management d/c needs identified. Case Management d/c poc: home with cardiac outpatient rehab. Case Management to follow. Date Signed: 09/17/2018 04:21 PM Electronically Signed By:Pita Mustafa RN
[2018-09-17] MEDS: CYCLOBENZAPRINE 10 MG TAB PO SCH (21:22)
[2018-09-17] MEDS: SIMETHICONE 80 MG TAB CHEW PO PRN (21:54)
[2018-09-18] MEDS: traMADol 50 MG TAB PO PRN (00:45)
[2018-09-18] MEDS: ACETAMINOPHEN 325 MG TAB PO PRN (05:56)
[2018-09-18] MEDS ORDERED: POTASSIUM CL 20 MEQ TAB PO ONE (07:52)
--- NOTE | 2018-09-18 07:56 | SOAPPROG ---
SOAP Progress Note Assessment/Plan: POD #5: CABGx4 (QUIROGA-LAD, SVG-OM1, SVG-OM3, SVG-RPL), suture ligation ESTEFANI, EVH BL thighs CAD s/p CABGx4 - BB/ASA for secondary prevention - Statin therapy held d/t nausea, revisit as outpt w cardiology Acute post-op blood loss anemia - No transfusions needed Post-op atrial fibrillation - BB at BP threshold - poorly tolerated Amio (nausea) w improvement after cessation - [id number] 2 - placed on Eliquis, currently in NSR w PACs DVT prophylaxis - SCDs/Eliquis PTOT -home w outpt rehab Disposition -expect Thursday discharge -supplement 20 mEq K -hold Lasix/K 10 mEq and BB given SBP 85 this AM -repeat CXR/CBC today r/o infectious process although I think his symptoms are medication-induced Subjective: Cold sweats and feels lousy. SBP 85. Afebrile Objective: Vital Signs Temp Pulse Resp BP Pulse Ox 37.0 C 81 14 92/62 L 93 09/18/18 04:00 09/18/18 04:00 09/18/18 04:00 09/18/18 04:00 09/18/18 04:00 Laboratory Results 09/15/18 05:00 09/18/18 05:50 09/17/18 09/18/18 09/19/18 05:59 05:59 05:59 Intake Total 1195 890 619 Output Total 1525 900 Balance -330 -10 619 - Physical Exam General Appearance: WD/WN, alert, mild distress EENT: No scleral icterus (R), No scleral icterus (L) Neck: normal inspection Respiratory: CTAB, no wheezes Cardiac/Chest: regular rate, rhythm 80's Abdomen: non-tender, soft, No distended Skin: normal color, warm/dry Extremities: trace pedal edema; b/l ecchymosis LE Neuro/Psych: no motor/sensory deficits, alert, normal mood/affect, oriented x 3 ICD10 Worksheet Patient Problems: Problems Problem Status Onset Acute blood loss as cause of postoperative anemia Acute S/P CABG x 4 Acute Status post ligation of left atrial appendage Acute CAD (coronary artery disease) Acute
[2018-09-18] MEDS: POTASSIUM CL 10 MEQ TAB PO SCH ×2 (08:27→10:24)
[2018-09-18] MEDS: METOPROLOL TARTRATE 25 MG TAB PO SCH ×3 (08:27→21:54)
[2018-09-18] MEDS: FUROSEMIDE 20 MG TAB PO SCH ×2 (08:27→10:24)
[2018-09-18] MEDS: PANTOPRAZOLE SODIUM 40 MG TAB PO SCH (09:19)
[2018-09-18] MEDS: ALLOPURINOL 300 MG TAB PO SCH (09:19)
[2018-09-18] MEDS: APIXABAN 5 MG TAB PO SCH ×2 (09:19→21:54)
[2018-09-18] MEDS: ASPIRIN 81 MG CHEWABLE TAB PO SCH (09:19)
[2018-09-18] MEDS ORDERED: KETOROLAC 30 MG/1 ML SDV IVP ONE (10:16)
[2018-09-18] MEDS: OXYCODONE/APAP 5/325 TAB PO PRN ×2 (10:32→18:04)
[2018-09-18 11:10] LABS: PLATELET COUNT 149 10^3/uL (150-400)
[2018-09-18] MEDS: SIMETHICONE 80 MG TAB CHEW PO PRN ×2 (12:39→21:54)
[2018-09-18] MEDS: CYCLOBENZAPRINE 10 MG TAB PO SCH (21:54)
[2018-09-19] MEDS ORDERED: ALPRAZolam 1 MG TAB PO PRN (02:30)
[2018-09-19] MEDS: OXYCODONE/APAP 5/325 TAB PO PRN (08:07)
[2018-09-19] MEDS: APIXABAN 5 MG TAB PO SCH (09:08)
[2018-09-19] MEDS: PANTOPRAZOLE SODIUM 40 MG TAB PO SCH (09:08)
[2018-09-19] MEDS: ASPIRIN 81 MG CHEWABLE TAB PO SCH (09:08)
[2018-09-19] MEDS: POTASSIUM CL 10 MEQ TAB PO SCH (09:08)
[2018-09-19] MEDS: FUROSEMIDE 20 MG TAB PO SCH (09:08)
[2018-09-19] MEDS: ALLOPURINOL 300 MG TAB PO SCH (09:08)
[2018-09-19] MEDS: METOPROLOL TARTRATE 25 MG TAB PO SCH (09:08)
--- NOTE | 2018-09-19 09:40 | PDHOMEO2F ---
Home Oxygen Face to Face Home Orders: I certify that a physician or a nurse practitioner or physician's assistant spa manager has had a [id number] encounter with this patient on the date of this order due to the diagnosis listed, which relates to the primary reason the patient requires home oxygen. Alternative treatments have been tried, or considered, and deemed ineffective. It is anticipated that supplemental oxygen will result in improvement with treatment. Home oxygen qualifying diagnosis: ischemic heart disease, pulmonary insufficiency SpO2 on room air (%): 80 Frequency of home oxygen needed: continuous Home oxygen liters per minute: 1-2 Home oxygen delivery device: nasal cannula Concentrator: Yes E-tanks for mobility and back up: Yes If ordering portable O2, is the patient mobile in the home?: Yes I certify that, based on these findings, the home oxygen is medically necessary for this patient for the following length of time. Length of time home oxygen needed: 1 month
--- NOTE | 2018-09-19 10:02 | SOAPPROG ---
SOAP Progress Note Assessment/Plan: POD #6: CABGx4 (QUIROGA-LAD, SVG-OM1, SVG-OM3, SVG-RPL), suture ligation ESTEFANI, EVH BL thighs CAD s/p CABGx4 - BB/ASA for secondary prevention - Statin therapy held d/t nausea, revisit as outpt w cardiology Acute post-op blood loss anemia - No transfusions needed Post-op atrial fibrillation - BB at BP threshold - poorly tolerated Amio (nausea) w improvement after cessation - [id number] 2 - placed on Eliquis, currently in NSR w PACs DVT prophylaxis - SCDs/Eliquis PTOT -home w outpt rehab Disposition -home today w oxygen Subjective: Limited sleep last night. Objective: Vital Signs Temp Pulse Resp BP Pulse Ox 37.2 C 87 18 118/72 96 09/19/18 08:00 09/19/18 08:00 09/19/18 08:00 09/19/18 08:00 09/19/18 08:00 Laboratory Results 09/18/18 10:05 09/19/18 05:20 09/18/18 09/19/18 09/20/18 05:59 05:59 05:59 Intake Total 890 1998 Output Total 900 1100 1700 Balance -10 899 -1700 - Physical Exam General Appearance: WD/WN, alert, mild distress EENT: No scleral icterus (R), No scleral icterus (L) Neck: normal inspection Respiratory: CTAB, no wheezes Cardiac/Chest: regular rate Abdomen: non-tender, soft, No distended Skin: normal color, warm/dry Extremities: trace pedal edema; b/l ecchymosis LE Neuro/Psych: no motor/sensory deficits, alert, normal mood/affect, oriented x 3 ICD10 Worksheet Patient Problems: Problems Problem Status Onset Acute blood loss as cause of postoperative anemia Acute S/P CABG x 4 Acute Status post ligation of left atrial appendage Acute CAD (coronary artery disease) Acute
--- NOTE | 2018-09-19 10:05 | PDDCSUM ---
Discharge Summary Discharge Summary: DATE OF ADMISSION: 09/13/18 DATE OF DISCHARGE: 09/19/18 DISPOSITION: Home with oxygen ACTIVITY: Instructed on sternal precautions, activity restrictions, and problems to call [facility]. ADMISSION DIAGNOSES: Severe 3-vessel coronary artery disease Crescendo angina Chronic ischemic systolic CHF (EF 37%) Chronic lymphocytic leukemia HTN DISCHARGE DIAGNOSES: As above, plus S/p CABGx4, ESTEFANI Postoperative nausea due to amiodarone Postoperative atrial fibrillation on Eliquis PROCEDURES PERFORMED: 09/13/18 (Rex) CABGx4 (QUIROGA-LAD, SVG-OM1, SVG-OM3, SVG-rPLA), suture ligation of ESTEFANI, EVH b/l HISTORY OF PRESENT ILLNESS: 57M with CLL, previous moderate CAD, chronic ischemic systolic CHF (EF 37%) who was found to have severe 3-vessel CAD on 09/06/18. He returned to the hospital for cardiac surgery. HOSPITAL COURSE BY PROBLEM LIST: CAD s/p CABGx4 - routine pathway. BB/ASA started for secondary prevention. Statin held due to nausea and will be reevaluated with cardiology. Significant postoperative pain/discomfort. Acute post-op blood loss anemia - no transfusions needed. Post-op atrial fibrillation - 2 brief episodes. ESTEFANI excluded. Initially responded to IV Amio. Transitioned to PO and then became nausea with multiple emesis episodes. His amiodarone was discontinued with resolution of symptoms. LFTs without hepatocyte dysfunction. [id number] 2 and placed on Eliquis w ASA. PERTINENT DISCHARGE CLINICAL INFORMATION: Sternotomy CDI; EVH b/l ecchymotic, soft NSR BP 118/72 SpO2 80 RA/96 2 L preop wt 94.4 kg, discharge wt 96.6 kg WBC 6.6 Hgb 10.8 Hct 32.3 Plt 149 Na 133 K 3.7 Cr 1.0 CONSULTANTS: [facility] MEDICATIONS ON ADMISSION: Albuterol, Xanax, Lisinopril, Allopurinol, Protonix, Flexeril, Toprol, Tylenol, ASA, Nitroglycerin ALLERGIES/SENSITIVITIES: NKDA DISCHARGE MEDICATIONS: CONTINUE these medications:Albuterol, Xanax, Allopurinol, Protonix, Flexeril, Tylenol, ASA, Nitroglycerin STOP these medications: Lisinopril, Toprol NEW medications: Lasix 20 mg PO daily w Klor-Con 10 mEq until pre-op wt Eliquis 5 mg PO BID Lopressor 25mg PO BID Percocet 5/325 mg 102 tab PO q6 hr PRN #20 Simethicone PRN FOLLOW UP APPOINTMENTS: 1. CV surgery: with Dr. Otto at [facility] on 09/28 11:45AM. 2. Cardiology (Dr. Mendoza), as directed 3. PCP, as directed FOLLOW UP TESTING: CXR prior to surgical appointment.
--- NOTE | 2018-09-19 11:30 | ASDISCHSUM ---
Discharge Information Plan Status:Home with No Needs Medically Cleared to Leave:09/19/2018 Discharge Date:09/19/2018 CM D/C Disposition:Home, Routine, Self-Care ADT D/C Disposition:Home, Routine, Self-Care Projected Discharge Date:09/19/2018 Transportation at D/C:Family Discharge Delay Reason: Follow-Up Date:09/19/2018 Discharge Slot: Final Diagnosis: Placement Information Patient Contact Information Contact Name:STEVE Relationship:Sister Address: Work Phone: City:[place] Alternate Phone: State/Zip Code:[place] [address] Email: Financial Information Financial Class:Medicaid Primary Plan Desc:[employer] Primary Plan Number:[id number] Secondary Plan Desc: Secondary Plan Number: Assessment Information LACE LACE Length of stay for Answers: 4-6 days current admission Acuity / Level of Answers: Yes Care: Did the patient have an inpatient admission? Comorbidities - select Answers: Chronic pulmonary disease all that apply Congestive heart failure Coronary Artery Disease Other Notes: HTN # of Emergency department Answers: 0 visits in the last 6 months Social determinants Answers: Mental health diagnosis (anxiety, depression, pers onality disorders, etc.) Score: 17 Date Signed: 09/19/2018 11:29 AM Electronically Signed By:MARIBELL Sheehan [facility] CM Progress Note CM Note CM Note Notes: Pt is a 57 yo M presents after undergoing coronary bypass graft. Pt came to ICU intubated. Pt has past history of gout, reflux, lymphoid leukemia, congestive heart failure, and anxiety. At this time PT/OT are ordered. Transitional Care is ordered. CM to follow. Plan: TBD Date Signed: 09/13/2018 03:28 PM Electronically Signed By:MARIBELL Sheehan [facility] CM Progress Note CM Note CM Note Notes: 09/15/2018 Case Management Note Discussed with this morning. POD #2 CABG x 4. PT eval recommending outpatient cardiac rehab. No further case management d/c needs anticipated. Pt to transfer to [facility]. Case Management d/c poc: Cardiac outpatient rehab. Case Management available if needs change. Date Signed: 09/15/2018 03:00 PM Electronically Signed By:Pita Mustafa RN [facility] CM Progress Note CM Note CM Note Notes: 09/17/2018 Case Management Note Discussed during rounds. PT recommending outpatient cardiac rehab. Anticipating d/c Thursday. There are no further Case Management d/c needs identified. Case Management d/c poc: home with cardiac outpatient rehab. Case Management to follow. Date Signed: 09/17/2018 04:21 PM Electronically Signed By:Pita Mustafa RN Case Management Discharge Plan Note Case Management Discharge Discharge Order Complete? Answers: Yes Patient to Obtain Answers: via Family Medications Transportation Arranged Answers: Family/Friends Discharge Comments Notes: Pt is being discharged independently and Home O2. No CM needs identified. Will follow-up with outpatient rehab. Family to transport. Date Signed: 09/19/2018 11:29 AM Electronically Signed By:MARIBELL Sheehan Intervention Information
[2018-09-19 11:54] VITALS: BP 103/65
== END 2018-09-19 14:46 | disposition home or self-care (01) | DRG 166 ==
LOC: F3N 07:40 → F2N 08:47 → F2W 09-15 18:25
PROVIDERS: ADMIT Thoracic Surgery (Cardiothoracic Vascular Surgery); ATTEND Thoracic Surgery (Cardiothoracic Vascular Surgery)
PROC: 02L70CK Occlusion of Left Atrial Appendage with Extraluminal Device, Open Approach (ICD-10-PCS; principal; 2018-09-13 10:00)
PROC: 06BP4ZZ Excision of Right Saphenous Vein, Percutaneous Endoscopic Approach (ICD-10-PCS; principal; 2018-09-13 10:00)
PROC: 02100A9 Bypass Coronary Artery, One Artery from Left Internal Mammary with Autologous Arterial Tissue, Open Approach (ICD-10-PCS; principal; 2018-09-13 10:00)
PROC: 021209W Bypass Coronary Artery, Three Arteries from Aorta with Autologous Venous Tissue, Open Approach (ICD-10-PCS; principal; 2018-09-13 10:00)
PROC: 06BQ4ZZ Excision of Left Saphenous Vein, Percutaneous Endoscopic Approach (ICD-10-PCS; principal; 2018-09-13 10:00)
PROC: 5A1221Z Performance of Cardiac Output, Continuous (ICD-10-PCS; principal; 2018-09-13 10:00)
DX: I25.110 Atherosclerotic heart disease of native coronary artery with unstable angina pectoris (principal); Z95.5 Presence of coronary angioplasty implant and graft; I50.22 Chronic systolic (congestive) heart failure; R11.0 Nausea; T46.2X5A Adverse effect of other antidysrhythmic drugs, initial encounter; I97.89 Other postprocedural complications and disorders of the circulatory system, not elsewhere classified; I48.0 Paroxysmal atrial fibrillation; D62 Acute posthemorrhagic anemia; C91.90 Lymphoid leukemia, unspecified not having achieved remission; I10 Essential (primary) hypertension; M10.9 Gout, unspecified; K21.9 Gastro-esophageal reflux disease without esophagitis
CPT/HCPCS: 82435-PO; 82565-PO; 82947-PO; 83605-ER; 84132-PO; 84295-PO; 84520-PO; 85014-ER; 97116-GP; 97162-GP; 97165-GO; 97530-GO; 97530-GP; 97535-GO; J0153; J0282; J0690; J1100; J1265; J1644; J1815; J1885; J1940; J2001; J2150; J2250; J2260; J2270; J2370; J2405; J2440; J2704; J2720; J2765; J2930; J3010; J3475; P9041

== ENCOUNTER → 2018-09-28 | Outpatient (CLI) | payer MEDICAID | LOC: FIMAGING 11:08 | PROVIDERS: ATTEND Thoracic Surgery (Cardiothoracic Vascular Surgery) | DX: Z09 Encounter for follow-up examination after completed treatment for conditions other than malignant neoplasm (principal); Z95.1 Presence of aortocoronary bypass graft ==